=== PATIENT | female | born 1980 | race Caucasian/White ===

== ENCOUNTER 2019-05-22 22:49 | Emergency (ER) | payer BC, SELFPAY ==
[2019-05-22 23:00] VITALS: BP 158/127; PULSE 122; RESP 18; TEMP 36.5; O2SAT 100; BMI 30.9
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
[2019-05-22 23:43] VITALS: BP 163/124; PULSE 118; RESP 20; TEMP 36.5; O2SAT 97
[2019-05-22 23:49] LABS: Basophils % 0.6 %; Eosinophils # 0.1 10^3/uL (0.0-0.8); Hematocrit 45.6 % (37.0-47.0); Lymphocytes # 2.2 10^3/uL (0.8-4.8); Lymphocytes % 32.7 %; Mean Corpuscular HGB Conc 35.1 g/dL (30.0-36.0); Mean Corpuscular Hemoglobin 34.1 pg (28.0-34.0); Mean Corpuscular Volume 97.2 fL (81-99); Mean Platelet Volume 9.1 fL (7.4-10.4); Monocytes # 0.4 10^3/uL (0.2-0.9); Neutrophils % 59.4 %; Nucleated Red Blood Cells % 0 %; Platelet Count 302 10^3/cmm (130-400); Red Blood Count 4.69 10^6/uL (4.1-5.3); Red Cell Distribution Width 13.3 % (12.1-15.1); White Blood Count 6.8 10^3/uL (4.0-10.0)
[2019-05-23 00:11] LABS: Alanine Aminotransferase 54 U/L (0-33); Albumin Level 4.4 g/dL (3.5-5.2); Alkaline Phosphatase 143 IU/L (35-105); Anion Gap 16.3 (5-19); Aspartate Amino Transferase 122 U/L (0-32); Blood Urea Nitrogen 8 mg/dL (6-20); Calcium 9.7 mg/dL (8.5-10.5); Carbon Dioxide 26 mmol/L (22-29); Chloride 100 mmol/L (98-107); Globulin 3.6 g/dL (1.3-4.6); Glomerular Filtration Rate 111.9 mL/min (90-130); Glucose 131 mg/dL (74-109); Potassium 3.3 mmol/L (3.5-5.1); Sodium 139 mmol/L (136-145); Total Bilirubin 0.3 mg/dL (0.15-1.2)
[2019-05-23 00:13] LABS: Alcohol Level 321 mg/dL (0-10)
[2019-05-23 01:52] LABS: Amphetamines Screen Urine Negative (Negative); Barbiturates Screen Urine Negative (Negative); Benzodiazepines Screen Urine Negative (Negative); Cocaine Screen Urine Negative (Negative); Opiate Screen Urine Negative (Negative); PCP Screen Urine Negative (Negative); THC Screen Urine Positive (Negative)
[2019-05-23 01:59] VITALS: BP 138/107; PULSE 97; RESP 18; TEMP 36.6; O2SAT 98
== END 2019-05-23 02:00 | disposition home or self-care (01) ==
PROVIDERS: Emergency Provider Nurse Practitioner Family; Family Provider Nurse Practitioner Family; PCP Nurse Practitioner Family
DX: F10.120 Alcohol abuse with intoxication, uncomplicated (principal); Y90.8 Blood alcohol level of 240 mg/100 ml or more
CPT/HCPCS: 36415; 80053; 80307; 85025; 99281; A9270

== ENCOUNTER 2024-07-04 07:54 | Outpatient (CLI) | payer OTHER, SELFPAY ==
--- NOTE | 2024-07-04 07:58 | MM_ITS ---
WS: [id number] Bilateral diagnostic 3D tomosynthesis digital mammogram, 07/04/2024 Clinical Data: R BREAST MASS Comparison: None. Findings: The left breast is normal. There is a 1 cm density in the lateral aspect of the right breast along with asymmetric tissue in the 11 o'clock position of the right breast. There are no spiculated masses nor clustered calcifications. There are lymph nodes in both axilla. MM/MM diag BI tomosynthesis [id number] Impression: 1. Normal left breast. 2. 1 cm density in lateral aspect of right breast along with asymmetric tissue in upper outer quadrant. 3. Right breast ultrasound. BIRADS: 2 - Benign. FOLLOW UP: See Report The CAD color checker roving or yarn was used
--- NOTE | 2024-07-04 07:58 | US_ITS ---
WS: [id number] Right breast ultrasound, 07/04/2024 Clinical Data: R BREAST MASS Comparison: Mammogram, 07/04/2024 Findings: In the lateral aspect of the right breast at the 9 o'clock position there was a lymph node with greatest dimension of 1.5 cm. The upper outer quadrant of the right breast showed only normal breast tissue. There were no masses or cysts. US/US breast RT limited* [id number] Impression: 1. Lymph node in the lateral aspect of right breast. 2. Normal breast tissue in upper outer quadrant of the right breast. 3. Recommend annual screening mammograms. BIRADS: 2 - Benign. FOLLOW UP: 1 Year Follow-up
== END 2024-07-04 07:55 | disposition home or self-care (01) ==
LOC: RAD 07:55
PROVIDERS: PCP Nurse Practitioner Family; Visit Provider Nurse Practitioner Family
DX: N63.15 Unspecified lump in the right breast, overlapping quadrants (principal); R59.0 Localized enlarged lymph nodes
CPT/HCPCS: 76642; 77062; G0279